=== PATIENT | female | born 1995 ===

== ENCOUNTER 2016-10-22 15:01 | Emergency (ER) | payer SELFPAY ==
[2016-10-22 15:09] VITALS: BP 125/67; PULSE 88; RESP 20; O2SAT 100
--- NOTE | 2016-10-22 15:48 | ED PDOC ---
HPI: General Adult Time Seen by Provider: 10/22/16 15:11 Chief Complaint (Nursing): Flu-like Symptoms Chief Complaint (Provider): Congestion/Sinus Pressure History Per: Patient History/Exam Limitations: no limitations Onset/Duration Of Symptoms: Days (x4) Have you had recent travel within the past 21 days to any of the following countries: [place], [place], [place] or [place]?: No Current Symptoms Are (Timing): Still Present Severity: Moderate Additional Complaint(s): Stephanie Olmedo is a 21 year old female, with a past medical history that includes migraines, who presents to the ED on 10/22/16 for the evaluation of a moderate amount of nasal congestion/sinus pressure that she has experienced x4 days. Associated subjective fever and diffuse myalgias (primarily in the legs) also reported in addition to a headache (not worst of life) and some mild blurring of her vision. Denies cough. Has medicated with Motrin without relief, last dose being as of this morning. Of note, patient did not receive this year's Influenza vaccination. PMD: Twin Past Medical History Reviewed: Historical Data, Nursing Documentation, Vital Signs Vital Signs: Last Vital Signs Temp 98.2 F 10/22/16 16:35 Pulse 88 10/22/16 15:06 Resp 20 10/22/16 15:06 BP 125/67 10/22/16 15:06 Pulse Ox 100 10/22/16 15:51 - Medical History PMH: Migraine - Surgical History Surgical History: - Family History Family History: States: Unknown Family Hx - Living Arrangements Living Arrangements: With Family - Immunization History Hx Tetanus Toxoid Vaccination: No Hx Influenza Vaccination: No Hx Pneumococcal Vaccination: No - Home Medications Home Medications: Ambulatory Orders Medication Instructions Recorded Ibuprofen [Motrin] 600 mg PO TID PRN #30 tab 10/19/16 Nitrofurantoin Macrocrystals 100 mg PO BID #14 cap 10/19/16 [Macrobid] Phenazopyridine [Phenazopyridine 200 mg PO TID #5 tab 10/19/16 HCl] Ibuprofen [Motrin] 600 mg PO Q6 #20 tab 10/22/16 Oseltamivir [Tamiflu] 75 mg PO BID 5 Days 10/22/16 - Allergies Allergies/Adverse Reactions: Allergies Allergy/AdvReac Type Severity Reaction Status Date / Time banana Allergy Mild RASH Verified 12/14/15 11:10 apple Allergy RASH Verified 12/14/15 11:10 avocado Allergy RASH Verified 12/14/15 11:10 peanut Allergy RASH Verified 12/14/15 11:10 pear Allergy RASH Verified 12/14/15 11:10 pineapple Allergy RASH Verified 12/14/15 11:10 Review of Systems Constitutional: Positive for: Fever (subjective) Eyes: Positive for: Vision Change (mild blurring of vision) ENT: Positive for: Nose Congestion (diffuse myalgias) Respiratory: Negative for: Cough Neurological: Positive for: Headache (not worst of life) Physical Exam - Reviewed Nursing Documentation Reviewed: Yes Vital Signs Reviewed: Yes - Physical Exam Appears: Positive for: Non-toxic, No Acute Distress Head Exam: Positive for: ATRAUMATIC, NORMOCEPHALIC Skin: Positive for: Normal Color, Warm, Dry ENT: Positive for: Normal ENT Inspection, TM Is/Are (normal b/l). Negative for : Pharyngeal Erythema, Tonsillar Exudate, Tonsillar Swelling Cardiovascular/Chest: Positive for: Regular Rate, Rhythm. Negative for: Murmur Respiratory: Positive for: Normal Breath Sounds. Negative for: Respiratory Distress Neurologic/Psych: Positive for: Alert, Oriented - ECG O2 Sat by Pulse Oximetry: 100 (RA) Pulse Ox Interpretation: Normal Medical Decision Making Medical Decision Makin:11 Initial Impression: viral syndrome; will r/o Influenza Initial Plan: * Influenza A B * Motrin 600mg PO * Reevaluation Flu B (+) Pt educated on results and demonstrated full understanding, given RX for Motrin and Tamiflu Advised no school/work x 1 week Supportive care methods discussed as well. Scribe Attestation: Documented by Annie Saha, acting as a scribe for Spring Glez PA-C Provider Scribe Attestation: All medical record entries made by the Scribe were at my direction and personally dictated by me. I have reviewed the chart and agree that the record accurately reflects my personal performance of the history, physical exam, medical decision making, and the department course for this patient. I have also personally directed, reviewed, and agree with the discharge instructions and disposition. Disposition - Clinical Impression Clinical Impression: Influenza - Patient ED Disposition Is Patient to be Admitted: No - Disposition Disposition: Routine/Home Disposition Time: 17:05 Condition: GOOD Prescriptions: Ibuprofen [Motrin] 600 mg PO Q6 #20 tab Oseltamivir [Tamiflu] 75 mg PO BID 5 Days Instructions: Influenza (ED) - POA Present On Arrival: None
[2016-10-22 17:04] VITALS: TEMP 98.2
== END 2016-10-22 17:13 | disposition home or self-care (01) ==
LOC: H.ER 15:01
DX: J11.1 Influenza due to unidentified influenza virus with other respiratory manifestations (principal); R51 Headache

== ENCOUNTER 2017-04-23 13:45 | Emergency (ER) | payer OTHER ==
[2017-04-23 14:03] VITALS: BP 142/75; PULSE 88; RESP 20; TEMP 99; O2SAT 99
--- NOTE | 2017-04-23 14:37 | ED PDOC ---
HPI: Headache Time Seen by Provider: 04/23/17 14:18 Chief Complaint (Nursing): Headache Chief Complaint (Provider): Headache History Per: Patient History/Exam Limitations: no limitations Onset/Duration Of Symptoms: Intermittent Episodes (for the past 3 months) Current Symptoms Are (Timing): Still Present Associated Symptoms: Photophobia, Blurred Vision Additional Complaint(s): Stephanie is a 21 y/o female who presents to the ED complaining of intermittent migraines for the past 3 months, which have worsened over the past 2 weeks. States her symptoms begin with a headache, and then she develops chills, shaking , and nausea, with occasional blurred vision and sensitivity to light. Denies cough and urinary symptoms. Patient has been taking Advil, with some relief but symptoms recur shortly after. Last took Advil earlier today. Typically her headache is frontal, but in the past 2 weeks her headaches have been involving the entire head. Of note, patient believes she had a CT Head done 3 years ago s/p trauma. PMD: Kortney Sharp Past Medical History Reviewed: Historical Data, Nursing Documentation, Vital Signs Vital Signs: Last Vital Signs Temp 99.0 F 04/23/17 14:00 Pulse 88 04/23/17 14:00 Resp 20 04/23/17 14:00 BP 142/75 04/23/17 14:00 Pulse Ox 99 04/23/17 14:00 - Medical History PMH: Migraine - Surgical History Surgical History: - Family History Family History: States: No Known Family Hx Other Family History: Migraine - father - Immunization History Hx Tetanus Toxoid Vaccination: No Hx Influenza Vaccination: No Hx Pneumococcal Vaccination: No - Home Medications Home Medications: Ambulatory Orders Medication Instructions Recorded Ibuprofen [Motrin] 600 mg PO TID PRN #30 tab 10/19/16 Nitrofurantoin Macrocrystals 100 mg PO BID #14 cap 10/19/16 [Macrobid] Phenazopyridine [Phenazopyridine 200 mg PO TID #5 tab 10/19/16 HCl] Ibuprofen [Motrin] 600 mg PO Q6 #20 tab 10/22/16 Oseltamivir [Tamiflu] 75 mg PO BID 5 Days 10/22/16 - Allergies Allergies/Adverse Reactions: Allergies Allergy/AdvReac Type Severity Reaction Status Date / Time banana Allergy Mild RASH Verified 04/23/17 15:23 apple Allergy RASH Verified 04/23/17 15:23 avocado Allergy RASH Verified 04/23/17 15:23 peanut Allergy RASH Verified 04/23/17 15:23 pear Allergy RASH Verified 04/23/17 15:23 pineapple Allergy RASH Verified 04/23/17 15:23 Review of Systems ROS Statement: Except As Marked, All Systems Reviewed And Found Negative Constitutional: Positive for: Chills (and shaking) Respiratory: Negative for: Cough Gastrointestinal: Positive for: Nausea Genitourinary Female: Negative for: Dysuria, Frequency, Incontinence Neurological: Positive for: Headache Physical Exam - Reviewed Nursing Documentation Reviewed: Yes Vital Signs Reviewed: Yes - Physical Exam Appears: Positive for: Non-toxic, No Acute Distress Head Exam: Positive for: ATRAUMATIC, NORMAL INSPECTION, NORMOCEPHALIC Skin: Positive for: Normal Color, Warm, Dry Eye Exam: Positive for: EOMI, Normal appearance, PERRL ENT: Positive for: Normal ENT Inspection Neck: Positive for: Normal, Painless ROM, Supple Cardiovascular/Chest: Positive for: Regular Rate, Rhythm. Negative for: Murmur Respiratory: Positive for: Normal Breath Sounds. Negative for: Accessory Muscle Use, Respiratory Distress Gastrointestinal/Abdominal: Positive for: Normal Exam, Soft. Negative for: Tenderness Extremity: Positive for: Normal ROM. Negative for: Deformity Neurologic/Psych: Positive for: Alert, site acquisition specialist II-XII (intact), Oriented, Cerebellar Tests (normal). Negative for: Motor/Sensory Deficits - Laboratory Results Result Diagrams: 04/23/17 15:09 04/23/17 15:09 - ECG O2 Sat by Pulse Oximetry: 99 (RA) Pulse Ox Interpretation: Normal - Progress ED Course And Treament: 04/23/2017 Patient improved after REglan 10mg iv x 1 dose and NS 1 liter wide open HEad CT: wnl Medical Decision Making Medical Decision Making: Time: 14:31 Initial Plan: --Pending CT Head w/o contrast --Ordered labs --Started on IV fluids and Reglan Time: 15:20 CT Head: FINDINGS: HEMORRHAGE: No intracranial hemorrhage. BRAIN: Archer-white matter differentiation is preserved. There is no mass, mass effect or abnormal extra-axial fluid collection. VENTRICLES: The ventricles are normal in size, shape and configuration. CALVARIUM: There is no calvarial fracture or extracranial soft tissue swelling. PARANASAL SINUSES: Predominantly clear. MASTOID AIR CELLS: Predominantly clear. OTHER FINDINGS: None. IMPRESSION: No acute intracranial abnormality. Time: 16:29 --Upon reevaluation, patient is medically stable and requires no further treatment. --Counseled patient on importance of follow up with PMD/Neurology. Referral for Neurology given. --Patient will be discharged home. --There is agreement to discharge plan. Return if symptoms persist or worsen. Scribe Attestation: Documented by Cathie Cooper, acting as a scribe for Shantelle Merino PA-C Provider Scribe Attestation: All medical record entries made by the Scribe were at my direction and personally dictated by me. I have reviewed the chart and agree that the record accurately reflects my personal performance of the history, physical exam, medical decision making, and the department course for this patient. I have also personally directed, reviewed, and agree with the discharge instructions and disposition. Disposition - Clinical Impression Clinical Impression: Migraine - Patient ED Disposition Is Patient to be Admitted: No - Disposition Referrals: Jason Moise MD [Staff Provider] - Disposition: Routine/Home Disposition Time: 16:32 Condition: FAIR Instructions: Migraine Headache (ED) Forms: [facility] ([place]) Print Language: KHMER
[2017-04-23] MEDS: Sodium Chloride 0.9% 1,000 ML IV STA (15:03)
--- NOTE | 2017-04-23 15:21 | CT ---
PROCEDURE: CT HEAD WITHOUT CONTRAST. HISTORY: Headache COMPARISON: None available. TECHNIQUE: Axial computed tomography images were obtained through the head/brain without intravenous contrast. Radiation dose: Total exam DLP = 765.54 mGy-cm. This CT exam was performed using one or more of the following dose reduction techniques: Automated exposure control, adjustment of the mA and/or kV according to patient size, and/or use of iterative reconstruction technique. FINDINGS: HEMORRHAGE: No intracranial hemorrhage. BRAIN: Archer-white matter differentiation is preserved. There is no mass, mass effect or abnormal extra-axial fluid collection. VENTRICLES: The ventricles are normal in size, shape and configuration. CALVARIUM: There is no calvarial fracture or extracranial soft tissue swelling. PARANASAL SINUSES: Predominantly clear. MASTOID AIR CELLS: Predominantly clear. OTHER FINDINGS: None. IMPRESSION: No acute intracranial abnormality.
[2017-04-23 15:23] LABS: BASO # 0.1 K/uL (0.0-0.2); BASO % 0.5 % (0.0-2.0); EOS % 0.1 % (0.0-4.0); HEMATOCRIT 39.8 % (34.0-47.0); LYMPH # 1.4 K/uL (1.0-4.3); LYMPH % 14.4 % (20.0-40.0); MEAN CELL VOLUME 92.3 fl (81.0-99.0); MEAN CORPUSCULAR HEMOGLOBIN 31.3 pg (27.0-31.0); MEAN CORPUSCULAR HGB CONC 33.9 g/dL (33.0-37.0); MEAN PLATELET VOLUME 8.3 fl (7.2-11.7); MONO # 0.3 K/uL (0.0-0.8); MONO % 2.9 % (0.0-10.0); NEUT % 82.1 % (50.0-75.0); NRBC % 0.1 % (0.0-0.0); RED CELL DISTRIBUTION WIDTH 12.8 % (11.5-14.5); WHITE BLOOD COUNT 9.8 K/uL (4.8-10.8)
[2017-04-23 15:34] LABS: BLOOD UREA NITROGEN 8 mg/dl (7-17); CALCIUM 9.6 mg/dL (8.4-10.2); CARBON DIOXIDE 25 mmol/L (22-30); CHLORIDE 102 mmol/L (98-107); GFR AFRICAN-AMERICAN > 60; GLUCOSE,RANDOM 93 mg/dL (65-105); POTASSIUM 3.7 MMOL/L (3.6-5.0); SODIUM 140 mmol/l (132-148)
== END 2017-04-23 16:54 | disposition home or self-care (01) ==
LOC: H.ER 13:45
DX: G43.909 Migraine, unspecified, not intractable, without status migrainosus (principal)
CPT/HCPCS: 70450; 80048; 81025; 85025; 96361; 96374; 99284; J2765; J7040